=== PATIENT | female | born 1985 | race Caucasian/White ===

== ENCOUNTER 2018-05-16 09:25 | Emergency (ER) | payer BC ==
[~2018-05-16] VITALS: Ht 157.5 cm; Wt 93.4 kg
--- OUTSIDE RECORDS SUMMARY | 2018-05-16 09:27 | XMS REPORT | Summary of Care ---
Author Author JOSE Ramsey, [place] Organization Unknown Address Unknown Phone Unavailable Care Team Providers Care [employer] Instrument Repairer Name Role Phone [place] GARCIA M.D. Unavailable Unavailable NUÑEZ N.P., NICK Unavailable Unavailable IQRA TRUJILLO [place], PIPER SPRINGER Unavailable Unavailable PIPER ESCALONA M.D. Unavailable Unavailable Unavailable Functional Status Name Dates Details Functional status health issues are not documented Status: Name Dates Details Cognitive status health issues are not documented Status: Problems Name Dates Details Encounter for routine gynecological examination (V72.31, Z01.419) Status: Active Breast pain in female (611.71, N64.4) Status: Active Cough (786.2, R05) Status: Active Encounter for female control (V25.8, Z30.019) Status: Active Pap smear for cervical cancer screening (V76.2, Z12.4) Status: Active Acute bronchitis (466.0, J20.9) Status: Active Right upper quadrant abdominal pain (789.01, R10.11) Status: Active Obesity (278.00, E66.9) Status: Active Sore throat (462, J02.9) Status: Active Tonsillitis with exudate (463, J03.90) Status: Active History of cholecystectomy (V45.79, Z90.49) Status: Active Medications Name Dates Details ProAir HFA 108 (90 Base) MCG/ACT Inhalation Aerosol Solution INHALE 1 TO 2 PUFFS EVERY 4 TO 6 HOURS NEEDED. Quantity: 1 NUÑEZ N.P., NICK * Start : 25-Nov-2015 Active 8.5 GM Inhaler Loratadine 10 MG Oral Tablet TAKE 1 TABLET AT BEDTIME. * Quantity: 30 Refills: 1 NUÑEZ N.P., NICK * Start : 25-Nov-2015 Active Fluticasone Propionate 50 MCG/ACT Nasal Suspension USE 2 SPRAYS IN EACH NOSTRIL ONCE DAILY * Quantity: 1 Refills: 1 NUÑEZ N.P., NICK * Start : 25-Nov-2015 Active 16 GM Bottle NuvaRing 0.12-0.015 MG/24HR Vaginal Ring INSERT 1 RING VAGINALLY FOR 3 WEEKS THEN 1 WEEK OFF. * Quantity: 1 Refills: 6 NICK NUÑEZ N.P. * Start : 25-Nov-2015 Active 1 Ring Box (3 Boxs) Amoxicillin 500 MG Oral Capsule TAKE 1 CAPSULE 3 TIMES DAILY UNTIL GONE. * Quantity: 21 Refills: 0 [place] GARCIA M.D. * Start : 02-Jan-2016 Active Allergies and Adverse Reactions Name Dates Details Iodine SOLN (Allergy) Status: Active Past Medical History Name Dates Details History of backache (V13.59, Z87.39) Status: Resolved History of Cervicalgia (723.1, M54.2) Status: Resolved Personal history of urinary tract infection (V13.02, Z87.440) Status: Resolved Procedures Procedure Dates Details History of Cholecystectomy Completed Immunization Name Dates Details Immunizations not documented Family History Name Dates Details Family history of Hypertension (V17.49) Comments: Family History Status: Active Family history of Thyroid Cancer Comments: Family History Status: Active Name Dates Details Family history of Breast Cancer (V16.3) Status: Active Social History Name Dates Details - Status: Name Dates Details Current every day smoker Vital Signs Date Test Result Details No Known Vitals to report Results Date Description Value Details Results not documented Plan of Care Name Dates Details Planned Observations Planned Goals not documented Interventions Provided Medication Changes* Amoxicillin 500 MG Oral Capsule - Start Labs/Procedures/Imaging* [O] Streptococcus Test Rapid (In Office); Done: 02 Jan 2016 Medications/Immunizations Administered* CefTRIAXone Sodium 500 MG Injection Solution Reconstituted Plan* Gargle with salt water take hydrocodone left from surgery for pain Injection of rocephin and oral Amoxicillin Instructions Name Dates Details Instructions not documented Encounters Appointment; NICK NUÑEZ NP Encounter Diagnosis: Problem not documented On: 25-Nov-2015 13:30 Appointment; [place] GARCIA M.D. Encounter Diagnosis: Problem not documented On: 23-Dec-2015 14:45 Appointment; [place] GARCIA M.D. Encounter Diagnosis: Problem not documented On: 02-Jan-2016 8:45
--- OUTSIDE RECORDS SUMMARY | 2018-05-16 09:27 | XMS REPORT ---
Author Author [facility] Address Unknown Phone Unavailable Care Team Providers Care Debrander Name Role Phone SANTY HANSEN Unavailable Unavailable Problems This patient has no known problems. Allergies, Adverse Reactions, Alerts This patient has no known allergies or adverse reactions. Medications This patient has no known medications. Results Test Description Test Time Test Comments Text Results Atomic Results Result Comments MRI KNEE LEFT WO [place] [address] Patient Name: KYRIE GALLEGOS MR #: [id number] : 1985 Age/Sex: 31/F Req #: [id number] [facility] Physician: Ordered by: SANTY HANSEN DO Report #: [id number] Location: MRI Room/Bed: Procedure: [id number] MRI/MRI KNEE LEFT WO Exam Date: 04/17/17 Exam Time: 1445 REPORT STATUS: Signed Left knee MRI without contrast. History: Knee pain. Strain. Fall. Decreased range of motion. Comparison: None. Technique: Multiplanar multi-sequence MRI of the knee without contrast. Findings: Medial compartment: There is mid substance degeneration of the medial meniscus with undersurface fraying extending to the inferior articular margin at the posterior horn best seen on series 3 image 30. The medial compartment articular cartilage surfaces are slightly thin. The medial collateral complex is intact. Lateral compartment: No meniscal tear or cartilage abnormality. The LCL complex is normal. Intercondylar notch: The ACL and PCL are intact. Patellofemoral compartment: There is articular cartilage fraying and fissuring in the patellofemoral compartment. Extensor mechanism: The quadriceps and patellar tendons are normal. Other findings: There is a joint effusion and synovitis. There is no acute fracture, subluxation or avascular necrosis. There is a small lobulated Allen's cyst. 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 Articular cartilage fraying and fissuring in the patellofemoral compartment. Small joint effusion, mild synovitis and small lobulated Allen's cyst. Signed by: Dr. Reed Owusu M.D. on 04/17/2017 3:42 PM Dictated By: REED OWUSU MD, MD [id number] Transcribed By: MIRTHA on 04/17/17 154 COPY TO: SANTY HANSEN DO
[2018-05-16 10:07] LABS: BASOPHILS # (AUTO) 0.1 (0.0-0.1); BASOPHILS % 0.7 % (0.0-1.0); EOSINOPHILS # (AUTO) 0.3 (0.0-0.4); EOSINOPHILS % 3.6 % (0.0-6.0); HEMATOCRIT 41.6 % (34.2-44.1); HEMOGLOBIN 14.1 g/dL (12.0-16.0); LYMPHOCYTES # (AUTO) 2.8 (1.0-3.2); MEAN CORPUSCULAR HGB CONC 33.9 g/dL (31-35); MEAN CORPUSCULAR VOLUME 82.5 fL (81-99); MONOCYTES # (AUTO) 0.6 (0.2-0.8); MONOCYTES % 6.1 % (4.4-11.3); NEUTROPHILS # (AUTO) 5.5 (2.1-6.9); NEUTROPHILS % 59.3 % (38.7-80.0); PLATELET COUNT 423 x10e3/uL (140-360); RED BLOOD COUNT 5.04 x10e6/uL (3.6-5.1); RED CELL DISTRIBUTION WIDTH 13.1 % (11.7-14.4)
[2018-05-16 10:31] LABS: ALANINE AMINOTRANSFERASE 25 IU/L (0-55); ALBUMIN 3.7 g/dL (3.5-5.0); ALBUMIN/GLOBULIN RATIO 1.1 (0.8-2.0); ALKALINE PHOSPHATASE 49 IU/L (40-150); ANION GAP 12.8 mmol/L (8-16); BLOOD UREA NITROGEN 7 mg/dL (7-26); BUN/CREATININE RATIO 12 (6-25); CALCIUM 9.6 mg/dL (8.4-10.2); CARBON DIOXIDE 20 mmol/L (22-29); CHLORIDE 107 mmol/L (98-107); EST GLOMERULAR FILTRATION RATE > 60 ML/MIN (60-); GLUCOSE 87 mg/dL (74-118); POTASSIUM 3.8 mmol/L (3.5-5.1); SODIUM 136 mmol/L (136-145)
[2018-05-16 11:04] LABS: HCG,QUANTITATIVE 77366.01 mIU/mL (0-10)
[2018-05-16 11:09] LABS: CLARITY,URINE SL CLOUDY (CLEAR); COLOR,URINE YELLOW (YELLOW); LEUKOCYTE ESTERASE ,URINE NEGATIVE (NEGATIVE); NITRITE,URINE NEGATIVE (NEGATIVE)
[2018-05-16 11:10] LABS: BACTERIA,URINE RARE /HPF; BILIRUBIN,URINE NEGATIVE (NEGATIVE); EPITHELIAL CELLS,URINE MODERATE /LPF; KETONES,URINE NEGATIVE (NEGATIVE); PROTEIN,URINE DIPSTICK NEGATIVE (NEGATIVE); RBC,URINE 0-5 /HPF (0-5); URINE UROBILINOGEN 0.2 mg/dL (0.2 - 1)
--- NOTE | 2018-05-16 11:46 | Diagnostic Imaging Report ---
EXAMINATION: Transvaginal ultrasound. CLINICAL INDICATION: Vaginal bleeding during . Last menstrual period 02/25/2018, estimated gestational age by dates 11 weeks, 3 days COMPARISON: None DISCUSSION: Transverse and sagittal transvaginal images were obtained of the pelvis. The uterus measures 9.2 x 6.2 x 7.8 cm. Within the endometrium there is a gestational sac of average diameter 4.52 cm. The gestational sac contains a conceptus of crown-rump length 5.11 cm, corresponding to an estimated gestational age of 11 weeks, 6 days. cardiac activity is identified at a rate of 168 bpm. A small amount of hypoechoic subchorionic hemorrhage is identified along the superior margin of the gestational sac. The right ovary measures 3 x 2.6 x 3.4 cm and contains a presumed corpus luteum. The left ovary is poorly visualized. No free fluid. IMPRESSION: Sonographic findings compatible with a viable tom intrauterine , estimated gestational age 11 weeks, 6 days by crown-rump length. Small amount of subchorionic hemorrhage along the superior margin of the gestational sac (less than 25% of the sac circumference). Signed by: Dr. Kareem Ge M.D. on 05/16/2018 11:43 AM
[2018-05-16 13:33] VITALS: BP 123/73
== END 2018-05-16 13:34 | disposition home or self-care (01) ==
LOC: ER 09:25
DX: O20.9 Hemorrhage in early pregnancy, unspecified (principal); O20.0 Threatened abortion
CPT/HCPCS: 36415; 76817; 80053; 81001; 84702; 85025; 86850; 86900; 99283